=== PATIENT | female | born 1970 | race Caucasian/White ===

== ENCOUNTER 2018-11-19 06:27 | Outpatient (CLI) ==
[2015-11-05 16:03] VITALS: BMI 34.4
--- NOTE | 2018-11-19 07:40 | STRESS ---
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[employer] Reason for Exam: CHEST PAIN, JAW AND ARM PAIN, HYPERTENSION Smoking History: NONE Height: 66" Weight: 235 LBS Current Medications: TOPROL XL, LISINOPRIL, HTCZ, AMLODIPINE, ASA Target Heart Rate: 146/172 S -T SEGMENT STAGE MPH/GRADE HEART RATE BPM BLOOD PRESSURE MMHG RHYTHM +/- ELEVATION DEPRESSION SYMPTOMS AT REST 97 120/100 SR X NONE 1 1.7/10% 150 198/120 SR X NONE 2 2.5/12% 3 3.4/14% 4 4.2/16% 5 5.0/18% Immediately After 150 198/120 SR X SEVERE HTN, REACHED TARGET 3 Min Post Exercise 100 170/108 SR X NONE 5 Min Post Exercise 97 172/110 SR X NONE DURATION OF EXERCISE: 2:43 MAXIMUM HEART RATE REACHED: 150 BPM REASON FOR TERMINATION: SEVERE HTN, REACHED TARGET HR OXYGEN SATURATION WITH EXERCISE 97% METS 4.6 INTERPRETATION: 1: BORDERLINE ST-T WAVE CHANGES FOR ISCHEMIA 2: NO CHEST PAIN OR CHEST DISCOMFORT 3: SEVERE HYPERTENSION WITH EXERCISE / HYPERTENSION AT REST 4. OCCASIONAL PREMATURE VENTRICULAR CONTRACTIONS WITH EXERCISE 5. DR HOANG NOTIFIED WITH RESULTS. PATIENT REFERRED TO CARA HERNANDEZ APRN AT 8: 00AM 11/19/2018 Recommend; Stress-Susstimebi[ cardiolite] MTDD
== END 2018-11-19 06:28 | disposition home or self-care (01) ==
LOC: CAR 06:27
PROVIDERS: ATTEND General Practice
DX: R07.9 Chest pain, unspecified (principal); M79.602 Pain in left arm; R68.84 Jaw pain; I10 Essential (primary) hypertension; R53.83 Other fatigue
CPT/HCPCS: 93017; 93018

== ENCOUNTER 2018-11-30 09:07 | Outpatient (CLI) ==
[2015-11-05 16:03] VITALS: BMI 34.4
--- NOTE | 2018-11-30 09:59 | US ---
EXAM: Renal artery duplex Doppler HISTORY: Primary hypertension FINDINGS: Renal artery duplex Doppler. Mckinney-scale ultrasound, color Doppler imaging and spectral an alysis performed. Aortic velocity (meters per second): 0.6 Aortic diameter: 1.3 cm. IVC patent: No data Renal veins patent: No data The right kidney measured 11.4 cm and the left kidney 12.4 cm. The general renal cortical echogenici ty is within normal limits. No evidence of hydronephrosis. Right renal artery peak systolic velocities (meters per second). Origin: 0.7 Mid: 2.5 Renal Hilum: 8.4 Right renal artery/Aortic Ratios: Origin: 1.0 Mid: 0.8 Renal Hilum: 0.6 Left renal artery peak systolic velocities (meters per second). Origin: 0.6 Mid: 0.7 Renal Hilum: 1.6 Left renal artery/Aortic Ratios: Origin: 1.0 Mid: 1.1 Renal Hilum: 1.0 Right renal resistive index was 0.42 Left renal resistive index was 0.58 IMPRESSION: 1. No sonographic evidence of hemodynamically significant renal artery stenosis. 2. Normal bilateral renal resistive indices. 3. Renal lengths are symmetric and within normal limits. Normal cortical volume. No hydronephrosis .
--- NOTE | 2018-11-30 10:01 | US ---
EXAM: Renal ultrasound. History: Hypertension. Technique: Multiple images through the kidneys were obtained. Color duplex Doppler was used to inte rrogate vascular flow. Findings: The right kidney measures 12.6 cm in long length demonstrating normal cortical echogenicity without e vidence for hydronephrosis, mass or shadowing calculus. The left kidney measures 12.4 cm in long length demonstrating normal cortical echogenicity without ev idence for hydronephrosis, mass or shadowing calculus. The bladder is not well distended. No bladder wall masses. Impression: Sonographically normal kidneys
== END 2018-11-30 09:08 | disposition home or self-care (01) ==
LOC: RAD 09:07
PROVIDERS: ATTEND General Practice
DX: I10 Essential (primary) hypertension (principal); R53.83 Other fatigue

== ENCOUNTER 2018-12-01 08:04 | Outpatient (CLI) ==
[2015-11-05 16:03] VITALS: BMI 34.4
== END 2018-12-01 08:05 | disposition home or self-care (01) ==
LOC: LAB 08:04
PROVIDERS: ATTEND General Practice
DX: I10 Essential (primary) hypertension (principal)
CPT/HCPCS: 81050; 82384